=== PATIENT | male | born 1950 | race Caucasian/White ===

== ENCOUNTER → 2019-09-23 | Outpatient (CLI) | payer MEDICARE, OTHER ==
[~2019-09-23] MED LIST: CRESTOR40 MG PO; GADOTERATE 7.5 MMOL/15ML VIAL. IVP ONE; METO25TA4 PO; TAMS0.4C97 PO; WARF-31 PO
--- NOTE | 2019-09-23 12:47 | KCIC ---
EXAMINATION: Magnetic resonance imaging (MRI) of the cervical spine without contrast 09/23/2019 10:47 AM HISTORY: Pain radiating to the left arm. Left shoulder and arm pain. Electrical shocks in the left upper extremity TECHNIQUE: Multiplanar multi-weighted MRI of the cervical spine was performed without intravenous contrast using the standard cervical spine protocol. Contrast information: None administered COMPARISON: None available. FINDINGS: The alignment of the cervical spine is normal. Vertebral bodies demonstrate normal signal intensity on all sequences. No acute fracture is identified; however, if trauma is suspected, a CT scan would be a more sensitive examination for fractures. The craniocervical junction is normal. The visualized portions of the skull base and the posterior fossa are normal. The spinal cord demonstrates normal signal intensity on all sequences. There is moderate disc height loss at C6-C7 with Modic type II endplate degenerative changes. Minimal endplate edema is noted involving the superior endplate of T7. No soft tissue abnormality is identified. Normal signal voids are present in the vertebral arteries. C2-C3: There is mild disc bulge. Mild facet arthropathy. No neuroforaminal or spinal canal stenosis. C3-C4: There is a posterior disc osteophyte complex asymmetric to the left. There is mild facet arthropathy. Mild left uncovertebral joint disease. Moderate left neuroforaminal stenosis. Mild spinal canal stenosis. C4-C5: There is mild disc bulge. There is mild facet arthropathy. There is mild bilateral neuroforaminal stenosis. No spinal canal stenosis. C5-C6: There is a mild disc bulge. Mild to moderate facet arthropathy. Mild uncovertebral joint disease. Mild to moderate left and mild right neuroforaminal stenosis. Moderate spinal canal stenosis, exacerbated by ligamentum flavum infolding. There is mild flattening of the cord without cord signal alteration. C6-C7: There is a posterior disc osteophyte complex. There is mild facet arthropathy. Moderate uncovertebral joint disease. Moderate left and mild right neuroforaminal stenosis. Mild spinal canal stenosis, exacerbated by ligamentum flavum infolding. C7-T1: Disc is normal in configuration. No neuroforaminal or spinal canal stenosis. IMPRESSION: Mild degenerative changes of the cervical spine as described in detail above. Electronically signed by: Elly Rich MD (09/23/2019 12:44 PM) [email or web address]
--- NOTE | 2019-09-23 12:56 | KCIC ---
EXAMINATION: Magnetic resonance imaging (MRI) of the lumbar spine without contrast 09/23/2019 11:22 AM HISTORY: Leg numbness after 20 minutes of walking TECHNIQUE: Multiplanar multi-weighted MRI of the lumbar spine was performed without intravenous contrast using the standard lumbar spine protocol. Contrast information: 20 cc gadolinium based contrast COMPARISON: CT lumbar spine 02/14/2014 FINDINGS: There is minimal retrolisthesis of L2 on L3 and L3 on L4. Vertebral body heights are maintained. Marrow signal intensity is normal in all sequences with exception of Modic type II endplate degenerative changes identified at L3-L4 there is endplate remodeling at L3-L4 with mild/moderate disc height loss. Mild/moderate disc height loss at L4-L5 with Modic type II endplate degenerative changes. Annular fissure noted at L3-L4 and L2-L3. Conus medullaris terminates at L1. Distal spinal cord signal intensity is normal in all sequences. Abdominal aorta is normal in course and caliber. No suspicious retroperitoneal abnormality. Less portions of the sacrum appear intact. L2-L3: There is a disc bulge with central disc protrusion. There is mild facet arthropathy, left greater than right. There is mild left neuroforaminal stenosis with narrowing of the left lateral recess. L3-L4: There is a moderate circumferential disc bulge with right far lateral disc protrusion. There is enhancement along the ventral epidural space suggestive of scar tissue. Severe bilateral neuroforaminal stenosis with right lateral recess stenosis. There is moderate facet arthropathy. Partial laminectomy changes are identified with partial decompression spinal canal. There is residual at least mild spinal canal stenosis. L4-L5: There is a disc bulge asymmetric to the right. There is moderate facet arthropathy. Partial laminectomy changes are identified with decompression of the spinal canal. No residual spinal canal stenosis. Mild bilateral neuroforaminal stenosis. L5-S1: There is a mild circumferential disc bulge asymmetric to the right with right foraminal disc protrusion. There is moderate facet arthropathy. There is moderate right and mild left neuroforaminal stenosis. No spinal canal stenosis. IMPRESSION: 1. There is a moderate circumferential disc bulge with right far lateral disc protrusion at L3-L4. Correlate with postoperative report as this may represent a recurrent disc herniation. Along the ventral epidural space there is enhancement in a region of apparent central disc extrusion, most favoring epidural scar tissue. This results in mild flattening of the thecal sac with residual mild spinal canal stenosis status post partial laminectomy decompression. There is persistent narrowing of the right lateral recess. 2. Post surgical changes are identified at L4-L5 with partial laminectomy changes decompressing the spinal canal. No residual spinal canal stenosis. 3. Mild/moderate degenerative changes of the lumbar spine, as described in detail above. Electronically signed by: Elly Rich MD (09/23/2019 12:53 PM) [id number]
== END | disposition home or self-care (01) ==
LOC: KCIC MRI 10:14
PROVIDERS: ATTEND Orthopaedic Surgery
DX: M50.21 Other cervical disc displacement, high cervical region (principal); M48.02 Spinal stenosis, cervical region; M47.812 Spondylosis without myelopathy or radiculopathy, cervical region; M25.78 Osteophyte, vertebrae; M12.88 Other specific arthropathies, not elsewhere classified, other specified site
CPT/HCPCS: 72141; 72158; 82565; A9575